=== PATIENT | male | born 1985 | race American Indian/Alaskan Native ===

== ENCOUNTER 2020-04-26 20:07 | Emergency (ER) | payer OTHER ==
[2020-04-26] MEDS ORDERED: IBUPROFEN 600 MG TAB PO ONE (20:31)
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
[2020-04-26 20:53] VITALS: BP 153/100
== END 2020-04-26 21:05 | disposition left against medical advice (07) ==
LOC: ED 20:07
DX: R45.4 Irritability and anger (principal); Z53.21 Procedure and treatment not carried out due to patient leaving prior to being seen by health care provider